=== PATIENT | male | born 1995 | race Two or more races ===

== ENCOUNTER 2020-04-27 23:34 | Outpatient (CLI) | payer OTHER | END 2020-04-27 23:35 | disposition critical access hospital (66) | LOC: EMS 23:34 | PROVIDERS: ATTEND Surgery | DX: R45.851 Suicidal ideations (principal) | CPT/HCPCS: A0425; A0429 ==

== ENCOUNTER 2020-04-27 23:50 | Emergency (ER) | payer OTHER ==
--- NOTE | 2020-04-28 | ED Physician Documentation ---
PD HPI MHE - Stated complaint Stated Complaint: SI - History obtained from History obtained from: Patient, EMS - History of Present Illness Primary symptom: Suicidal ideation. No: Suicide attempt Timing - onset: How many hours ago (The patient was reportedly drinking with friends and expressed some suicidal ideation without a particular plan. The friends called EMS to have the patient evaluated. The patient does not recall making any statements in that regard. He denies suicidal ideation right now.) Contributing factors: Sig other. No: Substance abuse - ETOH, Substance abuse - drugs Similar symptoms before: No diagnosis (He states he will feel depressed and have vague suicidal ideation when intoxicated at times in the past. He denies any feelings like that when sober. He denies any major depression in the past.) Recently seen: Not recently seen Review of Systems Constitutional: denies: Fever, Myalgias Nose: denies: Rhinorrhea / runny nose, Congestion Throat: denies: Sore throat Cardiac: denies: Chest pain / pressure Respiratory: denies: Cough GI: denies: Abdominal Pain, Nausea, Vomiting Neurologic: denies: Generalized weakness, Near syncope, Headache, Head injury Psychiatric: reports: Suicidal (vague statements earlier with friends. Denies feeling suicidal right now.). denies: Homicidal, Anxiety PD PAST MEDICAL HISTORY - Past Medical History Cardiovascular: None Respiratory: None Neuro: None Endocrine/Autoimmune: None Psych: None - Past Surgical History Past Surgical History: No - Present Medications Home Medications: Ambulatory Orders Medication Instructions Recorded Confirmed No Known Home Medications 04/27/20 04/27/20 - Allergies Allergies/Adverse Reactions: Allergies Allergy/AdvReac Type Severity Reaction Status Date / Time No Known Drug Allergies Allergy Verified 04/27/20 23:56 - Social History Does the pt smoke?: Yes Smoking Status: Current every day smoker Does the pt drink ETOH?: No Does the pt have substance abuse?: No - Immunizations Immunizations are current?: Yes PD ED PE NORMAL - Vitals Vital signs reviewed: Yes - General General: Alert and oriented X 3, No acute distress, Well developed/nourished - HEENT HEENT: Pharynx benign - Neck Neck: Supple, no meningeal sign, No adenopathy - Cardiac Cardiac: RRR, No murmur - Respiratory Respiratory: Clear bilaterally - Abdomen Abdomen: Soft, Non tender - Derm Derm: Normal color, Warm and dry - Neuro Neuro: Alert and oriented X 3, No motor deficit, Normal speech - Psych Psych: Normal mood, Normal affect Results - Vitals Vitals: Vital Signs - 24 hr 04/27/20 04/28/20 23:56 00:06 Temperature 36.2 C L 36.2 C L Heart Rate 92 92 Respiratory 16 16 Rate Blood Pressure 146/98 H 146/98 H O2 Saturation 98 98 Oxygen O2 Source Room air - Labs Labs: Laboratory Tests 04/27/20 04/27/20 04/27/20 00:12 00:12 00:12 WBC 6.8 RBC 5.49 Hgb 18.2 H Hct 51.8 MCV 94.4 H MCH 33.2 H MCHC 35.1 RDW 11.8 L Plt Count 299 MPV 10.2 Neut # (Auto) 3.9 Lymph # (Auto) 2.4 [place] # (Auto) 0.4 Eos # (Auto) 0.1 Baso # (Auto) 0.1 Absolute Nucleated RBC 0.00 Nucleated RBC % 0.0 Sodium 141 Potassium 3.7 Chloride 100 L Carbon Dioxide 27 Anion Gap 14.0 H BUN 14 Creatinine 1.0 Estimated GFR (MDRD) 91 Glucose 103 H Calcium 9.6 Total Bilirubin 0.7 AST 25 ALT 19 Alkaline Phosphatase 62 Total Protein 9.0 H Albumin 5.6 H Globulin 3.4 Albumin/Globulin Ratio 1.6 Lipase 27 TSH 3.37 Urine Color Urine Clarity Urine pH Ur Specific [place] Urine Protein Urine Glucose (UA) Urine Ketones Urine Occult Blood Urine Nitrite Urine Bilirubin Urine Urobilinogen Ur Leukocyte Esterase Ur Microscopic Review Urine Culture Comments Salicylates < 6.0 Urine Opiates Screen Ur Oxycodone Screen Urine Methadone Screen Ur Propoxyphene Screen Acetaminophen < 10 L Ur Barbiturates Screen Ur Tricyclics Screen Ur Phencyclidine Scrn Ur Amphetamine Screen U Methamphetamines Scrn U Benzodiazepines Scrn Urine Cocaine Screen U Cannabinoids Screen Ethyl Alcohol 273.2 04/27/20 04/28/20 04/28/20 23:58 00:12 06:20 WBC RBC Hgb Hct MCV MCH MCHC RDW Plt Count MPV Neut # (Auto) Lymph # (Auto) [place] # (Auto) Eos # (Auto) Baso # (Auto) Absolute Nucleated RBC Nucleated RBC % Sodium Potassium Chloride Carbon Dioxide Anion Gap BUN Creatinine Estimated GFR (MDRD) Glucose Calcium Total Bilirubin AST ALT Alkaline Phosphatase Total Protein Albumin Globulin Albumin/Globulin Ratio Lipase TSH Urine Color YELLOW Urine Clarity CLEAR Urine pH 6.0 Ur Specific [place] <=1.005 Urine Protein NEGATIVE Urine Glucose (UA) NEGATIVE Urine Ketones NEGATIVE Urine Occult Blood NEGATIVE Urine Nitrite NEGATIVE Urine Bilirubin NEGATIVE Urine Urobilinogen 0.2 (NORMAL) Ur Leukocyte Esterase NEGATIVE Ur Microscopic Review NOT INDICATED Urine Culture Comments NOT INDICATED Salicylates Urine Opiates Screen NEGATIVE Ur Oxycodone Screen NEGATIVE Urine Methadone Screen NEGATIVE Ur Propoxyphene Screen NEGATIVE Acetaminophen Ur Barbiturates Screen NEGATIVE Ur Tricyclics Screen NEGATIVE Ur Phencyclidine Scrn NEGATIVE Ur Amphetamine Screen NEGATIVE U Methamphetamines Scrn NEGATIVE U Benzodiazepines Scrn NEGATIVE Urine Cocaine Screen NEGATIVE U Cannabinoids Screen NEGATIVE Ethyl Alcohol 273.2 160.0 PD MEDICAL DECISION MAKING - ED course Complexity details: reviewed results, considered differential (He denies any suicidal ideation right now and does not recall making any statements to that regard earlier this evening. He is still likely intoxicated and will need to have time to sober and a repeat BA level. If he remains without any suicidal ideation, then he can f/u short term counseling. ), d/w patient ED course: The patient slept and rested through the night without any problems. He was checked on periodically by nursing. He had a repeat blood alcohol level drawn at 6:00 which showed a decreased alcohol level not as much as anticipated. One would assume his blood alcohol was still going up at the time it was first drawn (it should be noted there were 2 levels in there at the same number as the lab reran his alcohol on the same blood in the lab rather than redrawing). At this point he is denying suicidal ideation. However he would like to see him blood alcohol level a bit lower and this point we could also have social work talk with him as well. He may benefit from some short-term counseling to deal w ith stress.
[2020-04-28 00:17] LABS: MUDS CUTOFF CONCENTRATIONS CUTOFF CONC BELOW:
[2020-04-28 00:19] LABS: BILIRUBIN,URINE NEGATIVE (NEGATIVE); GLUCOSE, URINE (UA) NEGATIVE (NEGATIVE); KETONES,URINE (UA) NEGATIVE (NEGATIVE); LEUKOCYTE ESTERASE, URINE NEGATIVE (NEGATIVE); NITRITE,URINE NEGATIVE (NEGATIVE); OCCULT BLOOD,URINE NEGATIVE (NEGATIVE); PROTEIN,URINE NEGATIVE (NEGATIVE); UROBILINOGEN,URINE 0.2 (NORMAL) E.U./dL (NORMAL)
[2020-04-28 00:20] LABS: CLARITY,URINE CLEAR (CLEAR)
[2020-04-28 00:24] LABS: BASOPHILS # (AUTO) 0.1 10^3/uL (0.0-0.1); BASOPHILS % (AUTO) 0.9 %; EOSINOPHILS # (AUTO) 0.1 10^3/uL (0.0-0.7); EOSINOPHILS % (AUTO) 0.9 %; HGB - HEMOGLOBIN 18.2 g/dL (14.0-18.0); LYMPHOCYTES # (AUTO) 2.4 10^3/uL (1.5-3.5); LYMPHOCYTES % (AUTO) 35.1 %; MEAN CORPUSCULAR HEMOGLOBIN 33.2 pg (27.0-31.0); MEAN CORPUSCULAR HGB CONC 35.1 g/dL (32.0-36.0); MEAN CORPUSCULAR VOLUME 94.4 fL (80.0-94.0); MEAN PLATELET VOLUME 10.2 fL (7.4-11.4); MONOCYTES # (AUTO) 0.4 10^3/uL (0.0-1.0); MONOCYTES % (AUTO) 5.9 %; NEUTROPHILS # (AUTO) 3.9 10^3/uL (1.5-6.6); NEUTROPHILS % (AUTO) 56.9 %; PLT - PLATELET COUNT 299 10^3/uL (130-450); RED BLOOD COUNT 5.49 10^6/uL (4.70-6.10); RED CELL DISTRIBUTION WIDTH 11.8 % (12.0-15.0); WHITE BLOOD COUNT 6.8 x10^3/uL (4.8-10.8)
[2020-04-28 00:36] LABS: ACETAMINOPHEN < 10 ug/mL (10-30); ALBUMIN 5.6 g/dL (3.2-5.5); ALBUMIN/GLOBULIN RATIO 1.6 (1.0-2.2); ALKALINE PHOSPHATASE 62 IU/L (42-121); ALT ALANINE AMINOTRANSFERASE 19 IU/L (10-60); AST ASPARTATE AMINOTRANSFERASE 25 IU/L (10-42); BILIRUBIN,TOTAL 0.7 mg/dL (0.2-1.0); BUN - BLOOD UREA NITROGEN 14 mg/dL (6-20); CALCIUM 9.6 mg/dL (8.5-10.3); CARBON DIOXIDE - CO2 27 mmol/L (21-32); CHLORIDE 100 mmol/L (101-111); GLUCOSE 103 mg/dL (70-100); LIPASE 27 U/L (22-51); SALICYLATE < 6.0 mg/dL; SODIUM 141 mmol/L (135-145)
[2020-04-28 00:41] LABS: AMPHETAMINE SCREEN,URINE NEGATIVE (NEGATIVE); BENZODIAZEPINES SCREEN, URINE NEGATIVE (NEGATIVE); COCAINE SCREEN URINE NEGATIVE (NEGATIVE); METHADONE SCREEN, URINE NEGATIVE (NEGATIVE); METHAMPHETAMINES SCREEN, URINE NEGATIVE (NEGATIVE); OPIATE SCREEN, URINE NEGATIVE (NEGATIVE); OXYCODONE SCREEN, URINE NEGATIVE (NEGATIVE); PROPOXYPHENE SCREEN, URINE NEGATIVE (NEGATIVE); TRICYCLIC ANTIDEPRESSANT,URINE NEGATIVE (NEGATIVE)
[2020-04-28 07:53] VITALS: BP 128/64
[2020-04-28 12:55] LABS: C. PNEUMONIAE- RESP PCR PANEL NOT DETECTED
--- NOTE | 2020-04-28 13:25 | ED Physician Documentation ---
ED Addendum - Addendum Addendum: 04/28/20 13:[address] Roberts at morning shift change. The patient has been stable and cooperative. Seen by social work and initially agreeable to voluntary transfer to [facility] but then changed his mind at which point his command was Contacted, and they felt they should compel him for hospitalization at which point I spoke with Dr. James, psychiatrist at [facility] who is the accepting physician and agrees. [place] were completed. He stable for transport. Disposition transfer to [facility] Condition stable Diagnosis 1. Alcohol intoxication 2. Suicidal ideation.
[2020-04-28] MEDS ORDERED: LORazepam 1 MG TABLET PO STA (13:33)
== END 2020-04-28 15:08 ==
LOC: EDUNIT# → ED 23:50
DX: F10.929 Alcohol use, unspecified with intoxication, unspecified (principal); F32.9 Major depressive disorder, single episode, unspecified; R45.851 Suicidal ideations; Z20.828 Contact with and (suspected) exposure to other viral communicable diseases; F17.200 Nicotine dependence, unspecified, uncomplicated
CPT/HCPCS: 0202U; 36415; 80320; 80329; 81003; 83690; 99284; 99285; J8499; 80053; 80306; 80307; 81001; 84443; 85025; 87086